=== PATIENT | female | born 1955 | race Caucasian/White ===

== ENCOUNTER 2020-05-10 13:57 | Day surgery (SDC) | payer BC ==
[~2020-05-10] VITALS: Ht 160 cm; Wt 65.1 kg
[2020-05-10] MEDS ORDERED: LACTATED RINGERS 1,000 ML IV SCH (14:14)
[2020-05-10] MEDS ORDERED: PREG75CA PO (14:32)
[2020-05-10] MEDS ORDERED: OXYC15TA60 PO (14:32)
[2020-05-10] MEDS ORDERED: IRBE150T9 PO (14:32)
[2020-05-10] MEDS ORDERED: HYDR25TA6 PO (14:32)
[2020-05-10] MEDS ORDERED: mucinex (14:32)
[2020-05-10] MEDS ORDERED: ESTR1TAB5 PO (14:32)
[2020-05-10] MEDS ORDERED: CYCL5TAB PO (14:32)
[2020-05-10] MEDS ORDERED: [UNRECOGNIZED DRUG - OTHER] PO-COUM (14:32)
[2020-05-10] MEDS ORDERED: MELO15TA24 PO (14:32)
[2020-05-10] MEDS ORDERED: TOFA10TA PO (14:32)
[2020-05-10] MEDS ORDERED: CITRACAL PO-COUM (14:32)
[2020-05-10] MEDS ORDERED: POLY17PO5 PO (14:32)
[2020-05-10] MEDS ORDERED: OXYC1TAB18 PO (14:32)
[2020-05-10] MEDS ORDERED: LEFL10TA14 PO (14:32)
[2020-05-10 14:56] VITALS: BP 120/72
[2020-05-10] MEDS ORDERED: CHLORHEXIDINE 15 ML UDC ONE (15:18)
[2020-05-10] MEDS ORDERED: MIDAZOLAM 1 MG/ML, 2ML ONE ×2 (15:25→18:19)
[2020-05-10 15:28] LABS: AMPHETAMINE SCREEN, URINE Negative (Negative); BARBITURATE SCREEN, URINE Negative (Negative); BENZODIAZEPINE SCREEN, URINE Negative (Negative); CANNABINOID SCREEN, URINE Negative (Negative); COCAINE SCREEN, URINE Negative (Negative); METHADONE SCREEN, URINE Negative (Negative); OPIATE SCREEN, URINE Positive (Negative)
[2020-05-10] MEDS ORDERED: CHLORHEXIDINE 15 ML UDC MM ONE (15:30)
[2020-05-10 15:39] LABS: ALBUMIN 3.3 g/dL (3.4-5.0); ANION GAP 8 mmol/L (5-15); CALCIUM 9.1 mg/dL (8.5-10.1); CHLORIDE 101 mmol/L (98-107)
[2020-05-10 15:42] LABS: BASOPHILS # (AUTO) 0.01 x10^3/uL (0-0.1); BASOPHILS % (AUTO) 0 % (0-1); EOSINOPHILS # (AUTO) 0.19 x10^3/uL (0-0.4); EOSINOPHILS % (AUTO) 4 % (1-7); LYMPHOCYTES # (AUTO) 0.92 x10^3/uL (1-3.4); LYMPHOCYTES % (AUTO) 17 % (22-44); MD NO; MEAN CORPUSCULAR HGB CONC 32.5 g/dL (32.4-35.8); MEAN CORPUSCULAR VOLUME 89.1 fL (80-100); MEAN PLATELET VOLUME 7.7 fL (7.4-10.4); MONOCYTES # (AUTO) 0.52 x10^3/uL (0.2-0.8); MONOCYTES % (AUTO) 10 % (2-9); NEUTROPHILS # (AUTO) 3.68 x10^3/uL (1.8-6.8); NEUTROPHILS % (AUTO) 69 % (42-75); PLATELET COUNT 282 x10^3/uL (130-400); RED BLOOD COUNT 4.21 x10^6/uL (3.82-5.3); RED CELL DISTRIBUTION WIDTH 15.4 % (9.6-15.2)
[2020-05-10 15:45] LABS: ALANINE AMINOTRANSFERASE 15 U/L (12-78); ALKALINE PHOSPHATASE 133 U/L (45-117); BILIRUBIN,TOTAL 0.6 mg/dL (0.2-1.0); CREATININE 0.67 mg/dL (0.55-1.02); TOTAL PROTEIN 6.9 g/dL (6.4-8.2)
[2020-05-10] MEDS ORDERED: PHENYLEPHRINE 10 MG/ML ONE (15:57)
[2020-05-10] MEDS ORDERED: ALBUMIN HUMAN ONE (15:57)
[2020-05-10] MEDS ORDERED: EPINEPHRINE 1 MG/ML, 1ML ONE (15:57)
[2020-05-10] MEDS ORDERED: LIDOCAINE-MPF 2% ,5ML ONE (15:57)
[2020-05-10] MEDS ORDERED: VASOPRESSIN 20 UNIT/ML, 1ML ONE (15:57)
[2020-05-10 16:02] LABS: HCT (SEDRATE) 37.5 % (34.6-47.8)
[2020-05-10] MEDS ORDERED: BUPIVACAINE/PF 0.5% ONE (17:57)
[2020-05-10] MEDS ORDERED: FENTANYL PF 100 MCG/2ML ONE ×2 (18:21→20:54)
[2020-05-10] MEDS ORDERED: SUCCINYLCHOLINE 20 MG/ML, 10ML ONE (19:29)
[2020-05-10] MEDS ORDERED: PROPOFOL 10 MG/ML, 20ML ONE (19:29)
[2020-05-10] MEDS ORDERED: DEXAMETHASONE 4 MG/ML, 1ML ONE (19:29)
[2020-05-10] MEDS ORDERED: ONDANSETRON 2MG/ML, 2ML ONE (19:29)
[2020-05-10] MEDS ORDERED: GLYCOPYRROLATE 0.2MG/1ML, 5ML ONE (19:29)
[2020-05-10] MEDS ORDERED: CEFAZOLIN 1,000 MG ONE (19:29)
[2020-05-10] MEDS ORDERED: NEOSTIGMINE 1 MG/ML, 10ML ONE (19:29)
[2020-05-10] MEDS ORDERED: ROCURONIUM 10MG/ML,5ML ONE (19:29)
[2020-05-10] MEDS ORDERED: ALBUTEROL SULFATE 2.5 MG/3 ML NPPB PRN (19:30)
[2020-05-10] MEDS ORDERED: hydrALAzine 20 MG/ML, 1ML IV PRN (19:30)
[2020-05-10] MEDS ORDERED: KETOROLAC 30 MG/1 ML IV PRN (19:30)
[2020-05-10] MEDS ORDERED: ACETAMINOPHEN 325 MG TABLET PO PRN (19:30)
[2020-05-10] MEDS ORDERED: PROMETHAZINE 25 MG/ML, 1ML IV PRN (19:30)
[2020-05-10] MEDS ORDERED: LABETALOL 5MG/ML, 20ML IV PRN (19:30)
[2020-05-10] MEDS ORDERED: OXYcodone 5 MG/5 ML ORAL.SOL UDC PO PRN (19:30)
[2020-05-10] MEDS ORDERED: MEPERIDINE/PF 25MG/0.5ML IVPush PRN (19:30)
[2020-05-10] MEDS ORDERED: DIAZEPAM 5 MG/ML, 2ML IVPush PRN (19:30)
[2020-05-10] MEDS ORDERED: HYDROmorphone 1 MG/ML, 1ML INJ ONE (20:55)
[2020-05-10] MEDS ORDERED: OXYcodone 5 MG/5 ML ORAL.SOL UDC ONE (20:55)
[2020-05-10] MEDS: FENTANYL PF 100 MCG/2ML IV PRN ×2 (20:56→21:01)
[2020-05-10] MEDS ORDERED: MEPERIDINE/PF 25MG/ML,1ML ONE (20:57)
[2020-05-10] MEDS: HYDROmorphone 2 MG/ML, 1ML IVPush PRN ×2 (21:06→21:11)
[2020-05-10] MEDS ORDERED: OXYC5CAP2 PO (22:29)
== END 2020-05-10 23:34 | disposition home or self-care (01) ==
LOC: OUT 13:57 → 4NE 22:24 → OUT 23:34
PROVIDERS: ATTEND Orthopaedic Surgery
DX: T84.193A Other mechanical complication of internal fixation device of bone of left forearm, initial encounter (principal); T81.32XA Disruption of internal operation (surgical) wound, not elsewhere classified, initial encounter; Z20.828 Contact with and (suspected) exposure to other viral communicable diseases; S52.022G Displaced fracture of olecranon process without intraarticular extension of left ulna, subsequent encounter for closed fracture with delayed healing; G89.18 Other acute postprocedural pain; M06.9 Rheumatoid arthritis, unspecified; I10 Essential (primary) hypertension; M32.9 Systemic lupus erythematosus, unspecified; M81.0 Age-related osteoporosis without current pathological fracture; Z79.1 Long term (current) use of non-steroidal anti-inflammatories (NSAID); Z79.891 Long term (current) use of opiate analgesic; Z79.899 Other long term (current) drug therapy; Z98.890 Other specified postprocedural states; Z82.61 Family history of arthritis; Z82.49 Family history of ischemic heart disease and other diseases of the circulatory system; Z82.3 Family history of stroke; Y83.8 Other surgical procedures as the cause of abnormal reaction of the patient, or of later complication, without mention of misadventure at the time of the procedure
CPT/HCPCS: 13160; 24685; 36415; 64415; 73070; 80053; 80307; 85025; 85651; 86140; 87070; 87075; 87186; 87205; 87635; 93005; C1713; C1762; J0690; J1100; J1170; J2175; J2250; J2405; J2704; J2710; J3010; J7120; 76000; G0378; J0171; P9041; J0330; J2370; P9045